=== PATIENT | female | born 1945 | race Caucasian/White ===

== ENCOUNTER 2020-08-13 22:42 | Emergency (ER) | payer MEDICARE, SELFPAY ==
[2020-08-13 22:43] VITALS: BP 137/67; PULSE 86; RESP 16; TEMP 37; O2SAT 96; BMI 31.3
[2020-08-13 23:00] VITALS: BP 131/68; PULSE 65; RESP 17; O2SAT 98
[2020-08-13 23:30] VITALS: BP 137/80; PULSE 71; RESP 17; O2SAT 98
[2020-08-13 23:46] LABS: Bilirubin,Urine Negative (Negative); Blood, Urine 3+ (Negative); Color,Urine YELLOW (Yellow); Glucose,Urine (UA) Negative (Negative); Ketones,Urine Negative (Negative); Leukocyte Esterase,Urine TRACE (Negative); Microscopic, Urine URINE MICROSCOPIC (MICROSCOPIC); Nitrate,Urine POSITIVE (Negative); Protein,Urine Negative (Negative); Specific Gravity, Urine 1.025 (1.005-1.030); Urobilinogen,Urine 0.2 EU/dl (0.2)
--- NOTE | 2020-08-13 23:46 | HMH.EDFEV ---
ED Disposition Clinical Impression: UTI (urinary tract infection) Qualifiers: Urinary tract infection type: site unspecified Hematuria presence: without hematuria Qualified Code(s): N39.0 - Urinary tract infection, site not specified Disposition: Home, Self-Care Condition on Discharge: Good Instructions: DI for Fever (Symptom) -- Adult Additional Instructions: fluids and keep appt in am Referrals: Fabian Solomon MD [Primary Care Provider] - - Critical Care Critical Care Time: No Attestation: On 08/13/20, the high probability of a clinically significant, sudden or life threatening deterioration of the following system(s) required my full and direct attention, intervention and personal management. The time I documented below is in addition to time spent performing reported procedures but includes the following listed in this critical care notation. Medical Decision Making - Medical Records Medical records reviewed: Yes: I reviewed the patient's medical records. - Ian Inquiry Pt receiving controlled substance: No Vital Signs: 08/13/20 22:43 08/13/20 23:00 08/13/20 23:30 Temperature 98.6 F Temperature Source Oral Pulse Rate [Right Radial] 86 65 71 Respiratory Rate 16 17 17 Blood Pressure [Right Arm] 137/67 131/68 137/80 Blood Pressure Mean [Right Arm] 90 89 99 Blood Pressure Source [Right Arm] Automatic Cuff Automatic Cuff Automatic Cuff Blood Pressure Position [Right Arm] Supine Supine Supine 02 Sat by Pulse Oximetry 96 98 98 Oxygen Delivery Method Room Air Room Air Room Air 08/14/20 00:00 Temperature Temperature Source Pulse Rate [Right Radial] 69 Respiratory Rate 17 Blood Pressure [Right Arm] 133/74 Blood Pressure Mean [Right Arm] 93 Blood Pressure Source [Right Arm] Automatic Cuff Blood Pressure Position [Right Arm] Supine 02 Sat by Pulse Oximetry 98 Oxygen Delivery Method Room Air - Lab Data Lab results reviewed: Yes: I reviewed the patient's lab results. Lab Results 08/13/20 23:10: Urine Color Yellow, Urine Appearance Slightly cloudy, Urine pH 6.0, Ur Specific Bradshaw 1.025, Urine Protein Negative, Urine Glucose (UA) Negative, Urine Ketones Negative, Urine Blood 3+, Urine Nitrate Positive, Urine Bilirubin Negative, Urine Urobilinogen 0.2, Ur Leukocyte Esterase Trace, Urine RBC 3-5, Urine WBC Occasional, Urine Bacteria 2+ Orders (Tests/Meds): ORDERS Category Date Time Status XR chest 2V Stat Exams 08/13/20 23:47 Taken Complete Blood Count Auto Diff Stat Lab 08/13/20 23:47 Received Comprehensive Metabolic Panel Stat Lab 08/13/20 23:47 Received Covid-19 Nasal PCR ([facility]) Routine Lab 08/13/20 23:47 Received Flu A&B Antigens, Rapid [Rapid Influenza A&B Antigens] Lab 08/13/20 23:58 Received Stat Strep Scrn Group A (Rapid) Stat Lab 08/13/20 23:58 Received Urine Culture Stat Micro 08/13/20 23:10 Received - Radiology Data #1 Image(s): Chest Image Reviewed: Yes I reviewed the patient's radiology image Preliminary Findings: Normal/NAD Fever HPI - General Chief Complaint: Fever Stated Complaint: Fever, tired Time Seen by Provider: 08/13/20 23:40 Mode of Arrival: Ambulatory Source of Information: Patient, Relative, Medical Record Limitations: No Limitations Description of Symptoms (Recalled from ER Triage Doc. by RN): Pt c/o subjective fever starting tonight with fatigue. Pt denies abd pain, N/V/D. 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
--- NOTE | 2020-08-13 23:47 | XR_ITS ---
PROCEDURE: XR CHEST 2V CLINICAL HISTORY: URI Cough COMPARISON: No exams were available for comparison FINDINGS: The cardiomediastinal silhouette and pulmonary vascularity are within normal limits. The lungs are clear without infiltrates, suspicious nodules, or pleural effusions. No acute bony abnormalities. IMPRESSION: No acute findings. Dictated by: Ish Yoo MD 08/14/2020 06:08 Ish Yoo MD in OV 08/14/2020 06:08
[2020-08-13 23:51] LABS: Appearance,Urine Slightly Cloudy (Clear)
[2020-08-13 23:59] LABS: Bacteria,Urine 2+ /lpf; WBC,Urine Occasional #/hpf (0-3)
[2020-08-14] VITALS: BP 133/74; PULSE 69; RESP 17; O2SAT 98
[2020-08-14 00:21] LABS: Basophils # 0.1 K/mm3 (0-0.2); Basophils % 1.6 % (0.1-2.0); Eosinophils # 0.2 K/mm3 (0.0-0.4); Hematocrit 44.4 % (37.0-47.0); Hemoglobin 14.6 g/dL (12.2-16.2); Lymphocytes # 2.4 K/mm3 (0.7-4.5); Lymphocytes % 28.4 % (10-50); Mean Corpuscular HGB Conc 32.8 g/dL (31.8-35.4); Mean Corpuscular Volume 88.3 fl (81-99); Mean Platelet Volume 8.2 fl (7.4-10.4); Monocytes # 0.6 K/mm3 (0.1-1.0); Monocytes % 7.2 % (1.7-9.3); Neutrophils # 5.1 K/mm3 (1.8-7.8); Neutrophils % 60.8 % (37.0-80.0); Platelet Count 270 K/mm3 (142-424); Red Blood Count 5.03 M/mm3 (4.20-5.40); Red Cell Distribution Width 13.5 % (11.5-17.5); White Blood Count 8.4 K/mm3 (4.8-10.8)
[2020-08-14 00:24] LABS: Strep Scrn Group A (Rapid) Negative (Negative)
[2020-08-14 00:34] LABS: Chloride 102 mmol/L (98-107); Sodium 136 mmol/L (136-145)
[2020-08-14 00:35] LABS: Potassium 4.2 mmoL/L (3.5-5.1)
[2020-08-14 00:36] VITALS: BP 138/83; PULSE 79; RESP 16; TEMP 36.7; O2SAT 97
[2020-08-14 00:37] LABS: Alanine Aminotransferase 13 U/L (12-78); Alkaline Phosphatase 97 U/L (38-126); Anion Gap 13.2 mEq/L (5-15); Aspartate Amino Transferase 27 U/L (14-36); Bilirubin,Total 0.6 mg/dl (0.2-1.3); Blood Urea Nitrogen 22 mg/dl (7-17); Carbon Dioxide 25 mmol/L (22.0-30.0); Creatinine Clearance Estimated 67 mL/min (50-200); Estimated Glomerular Filt Rate 54 ml/min (>60); GFR (African American) 65 ML/MIN (>60)
[2020-08-14 00:38] LABS: Albumin Level 3.8 g/dl (3.5-5.0); Albumin/Globulin Ratio 1.1 (1.1-1.8); Calcium 9.3 mg/dl (8.4-10.2); Globulin 3.5 g/dL (1.3-3.2); Glucose 111 mg/dl (74-100); Total Protein,Serum 7.3 g/dl (6.3-8.2)
== END 2020-08-14 00:37 | disposition home or self-care (01) ==
PROVIDERS: Emergency Provider Emergency Medicine; PCP Family Medicine
DX: Z20.822 Contact with and (suspected) exposure to COVID-19 (principal); N39.0 Urinary tract infection, site not specified
CPT/HCPCS: 71046; 80053; 81001; 85025; 87086; 87275; 87276; 87430; 99284; U0003

== ENCOUNTER → 2020-08-14 16:18 | Outpatient (CLI) | payer MEDICARE, SELFPAY ==
[2020-08-14 16:35] LABS: Chol/HDL Ratio 3.6 (1-3.5); Cholesterol 167 mg/dl (140-200); HDL Cholesterol 46 mg/dl (40-60); Triglycerides 125 mg/dl (30-150); VLDL Cholesterol 25 mg/dL (0-40)
[2020-08-14 16:45] LABS: Direct LDL Cholesterol 86.81 mg/dL (100-129)
[2020-08-14 16:56] LABS: Hemoglobin A1C 5.5 % (4.0-6.0)
[2020-08-14 17:06] LABS: Thyroid Stimulating Hormone 7.05 uIU/mL (0.465-4.68)
== END ==
PROVIDERS: Visit Provider Family Medicine
DX: R53.83 Other fatigue (principal); R73.09 Other abnormal glucose; I10 Essential (primary) hypertension
CPT/HCPCS: 80061; 83036; 84443

== ENCOUNTER 2021-07-18 10:47 | Emergency (ER) | payer MEDICARE, SELFPAY ==
[2021-07-18 11:00] VITALS: BP 134/84; PULSE 97; RESP 18; TEMP 36.7; O2SAT 98; BMI 27.5
--- NOTE | 2021-07-18 11:36 | HMH.EDUTC ---
[facility] [place] Clinical Impression: Strep sore throat, COVID-19 virus test result unknown Disposition: Home, Self-Care Condition on Discharge: Good Instructions: DI for Strep Throat, DI for COVID-19 (Suspected or Confirmed ) Additional Instructions: Start antibiotics today be sure to take it as ordered with the full length of time although you should start feeling better in 24-48 hours. Change toothbrush and toothpaste 24-48 hours after starting antibiotics Tylenol or Motrin as needed for fever or pain Encourage fluids, water, Gatorade, Powerade, try cold fluids, popsicles, ice cream will make it feel better You are contagious for 24 hours. Avoid kissing anyone, no eating or drinking after anyone. You are contagious. Follow-up the ER for new or worsening symptoms or no noticeable improvement over the next 24-48 hours. Follow-up with PCP this week. Prescriptions: Fluticasone Propionate [Flonase 50mcg nasal spray 16gm] 1 spr NS DAILY 14 Days #9.9 ml Transmission Status: Received by [facility] PRIYANKA 420 Azithromycin [Zithromax 250mg tab] 250 mg PO DIRECTED #6 tab Transmission Status: Received by [email or web address] [id number] Referrals: Fabian Solomon MD [Primary Care Provider] - Time of Disposition: 12:00 Medical Decision Making - Ian Inquiry Pt receiving controlled substance: No Vital Signs: 07/18/21 11:00 07/18/21 11:56 Temperature 98.1 F 98.1 F Temperature Source Oral Pulse Rate 97 H Pulse Rate [Right Brachial] 97 H Respiratory Rate 18 18 Blood Pressure 134/84 Blood Pressure [Right Arm] 134/84 Blood Pressure Mean [Right Arm] 100 Blood Pressure Source [Right Arm] Automatic Cuff Blood Pressure Position [Right Arm] Sitting 02 Sat by Pulse Oximetry 98 Oxygen Delivery Method Room Air [facility] [place] HPI - General Chief complaint: Urgent [facility] Stated complaint: covid symptoms Time Seen by Provider: 07/18/21 11:37 Mode of Arrival: Ambulatory Source of Information: Patient Limitations: No Limitations Description of Symptoms (Recalled from Triage Doc. by RN): PATIENT C/O COUGH, CONGESTION, DECREASED APPETITE, AND WEAKNESS X 1 WEEK HEENT Symptoms (Recalled from RN notes): Yes Resp Symptoms (Recalled from RN notes): Yes Skin Symptoms (Recalled from RN notes): No MS Symptoms (Recalled from RN notes): No Functional Status (Recalled from RN notes): WNL - History of Present Illness Provider Complaint: 76 yr old female presents for sore throat,body aches,weakness, cough,sinus presure and decrease max for 1 week. pt states she feels like she does when she has strep. - Related Data Previous Rx's Medication Instructions Recorded levothyroxine 112 mcg tablet 112 mcg PO DAILY #90 tab 09/01/20 Azithromycin [Zithromax 250mg 250 mg PO DIRECTED #6 tab 07/18/21 tab] Fluticasone Propionate [Flonase 1 spr NS DAILY 14 Days #9.9 ml 07/18/21 50mcg nasal spray 16gm] Allergies Allergy/AdvReac Type Severity Reaction Status Date / Time midazolam [From Versed] AdvReac Verified 12/01/20 13:16 - Worker's Comp Is this a Worker's Comp case?: No [facility] History - Hepatitis A Screen Drug use history?: No High risk sexual behaviors?: No History of sexually transmitted infection?: No Currently employed?: No Childcare worker?: No Do you have indoor plumbing?: Yes Do you have electricity?: Yes Attestation statement:: This patient has been screened for Hepatitis A risk factors. I have reviewed the patient's past medical history: Yes Medical History: Reports:: Cancer - Social History Smoking Status: Never smoker Alcohol Intake: never Substance Use Type: denies use Occupational Status: retired ROS Obtained: Yes Systems reviewed as appropriate & no additional complaints - Constitutional Constitutional: Reports system reviewed and no additional complaints, except as docu, Denies fever(s) - Eyes Eyes: Reports system reviewed and no additional complaints, except as docu, Denies blurry
[2021-07-18 11:56] VITALS: BP 134/84; PULSE 97; RESP 18; TEMP 36.7; O2SAT 98
[2021-07-18 12:05] LABS: UTC Strep Screen (Rapid) Negative (Negative)
[2021-07-18 15:10] LABS: Adenovirus,PCR Not Detected (NotDetected); Bordetella Pertussis Not Detected (NotDetected); Chlamydophila Pneumoniae, PCR Not Detected (NotDetected); Coronavirus 229E Not Detected (NotDetected); Coronavirus NL63 Not Detected (NotDetected); Coronavirus OC43 Not Detected (NotDetected); Coronovirus HKU1,PCR Not Detected (NotDetected); Human Metapneumovirus Not Detected (NotDetected); Influenza A, PCR Not Detected (NotDetected); Influenza AH1, 2009 Not Detected (NotDetected); Influenza AH1, PCR Not Detected (NotDetected); Influenza AH3,PCR Not Detected (NotDetected); Influenza B, PCR Not Detected (NotDetected); Mycoplasma Pneumoniae, PCR Not Detected (NotDetected); Parainfluenza 1, PCR Not Detected (NotDetected); Parainfluenza 2, PCR Not Detected (NotDetected); Parainfluenza 3, PCR Not Detected (NotDetected); Parainfluenza 4, PCR Not Detected (NotDetected); Respiratory Syncytial Virus Not Detected (NotDetected); Rhinovirus/Enterovirus Not Detected (NotDetected)
[2021-07-18 17:05] LABS: Coronavirus 19, PCR Detected (NotDetected)
== END 2021-07-18 12:00 | disposition home or self-care (01) ==
PROVIDERS: Emergency Provider Nurse Practitioner Family; PCP Family Medicine
DX: U07.1 COVID-19 (principal)
CPT/HCPCS: G0463; 87581; 87632; 87798; 87880; 99203; C9803; U0003; U0005

== ENCOUNTER 2022-06-12 12:39 | Emergency (ER) | payer MEDICARE, SELFPAY ==
--- NOTE | 2022-06-12 12:50 | EXP.UTC ---
Discharge Plan Disposition Patient Disposition: Home, Self-Care Condition: Good Prescriptions Prescriptions: New amoxicillin [amoxicillin] 500 mg tablet 500 mg PO TID 10 Days Qty: 30 0RF benzonatate [benzonatate] 100 mg capsule 100 mg PO TIDP PRN (Reason: Cough) Qty: 30 0RF methylprednisolone 4 mg Tablets,Dose Pack 4 mg PO DIRECTED Qty: 21 0RF No Action levothyroxine [Synthroid] 112 mcg tablet 112 mcg PO DAILY Qty: 90 3RF azithromycin 250 MG tablet 250 mg PO DIRECTED Qty: 6 0RF Rx Instructions: Take two (2) tablets on day #1, then one (1) tablet day #2 thru #5 fluticasone propionate 120 SPR/BOT bottle 1 spr NS DAILY 14 Days Qty: 9.9 0RF Referrals Follow up/Referrals: Fabian Solomon MD [Primary Care Provider] - See instructions Activity Restrictions/Add. Instructions Additional Instructions/Restrictions: Drink plenty of fluids. Take tylenol or ibuprofen for pain or fever. Take the medications as directed. Follow up with your regular doctor. GO TO THE ER FOR ANY WORSENING SYMPTOMS Don't start the oral steroids until tomorrow, since you had the shot here today. Clinical Impressions Clinical Impression: Pharyngitis Discharge ED Provider: Honorio Elizalde [facility] General Stated complaint: Sore throat Time Seen by Provider: 06/12/22 12:50 History of Present Illness Provider Complaint: She states that she has had a sore throat and she has felt bad for the past 2 days. Related Data Previous Rx's Medication Instructions Recorded levothyroxine 112 mcg tablet 112 mcg PO DAILY #90 tabs 09/01/20 (Synthroid) azithromycin 250 mg tablet 250 mg PO DIRECTED #6 tabs 07/18/21 fluticasone propionate 50 1 spr NS DAILY 14 days #9.9 mL 07/18/21 mcg/actuation nasal spray,suspension amoxicillin 500 mg tablet 500 mg PO TID 10 days #30 tabs 06/12/22 benzonatate 100 mg capsule 100 mg PO TIDP PRN Cough #30 caps 06/12/22 methylprednisolone 4 mg tablets in 4 mg PO DIRECTED #21 tabs 06/12/22 a dose pack Allergies Allergy/AdvReac Type Severity Reaction Status Date / Time midazolam [From Versed] AdvReac Verified 06/12/22 13:48 PFSH PFS Social History Smoking Status: Never smoker alcohol intake: never substance use type: denies use current occupational status: retired Travel in the last 8 weeks: None ROS Obtained: Yes All systems reviewed & no additional complaints except as documented Constitutional Constitutional: Reports chills and Reports fever(s) Eyes Eyes: Denies eye discharge ENT Ears, Nose, Mouth, and Throat: Reports as per HPI Cardiovascular Cardiovascular: Denies chest pain Respiratory Respiratory: Denies chest congestion and Reports cough Gastrointestinal Gastrointestingal: Reports nausea; Denies abdominal pain, constipation, cramping, diarrhea or vomiting Musculoskeletal Musculoskeletal: Denies arthralgias Integumentary/Breasts Skin/Breast: Denies rash Neurologic Neurologic: Denies paresthesias Physical Exam General General appearance: alert and in no apparent distress Head Head exam: atraumatic, normocephalic and normal inspection Eye Eye exam: Present normal appearance, PERRL and EOMI ENT ENT exam: Present mucous membranes moist and normal external ear exam Expanded ENT Exam TM/Canal exam: Bilateral TM: erythema and bulging Nose exam: Absent sinus tenderness Mouth exam: Present normal external inspection; Absent drooling Teeth exam: Present normal inspection Throat exam: Present tonsillar erythema, tonsillomegaly and tonsillar exudate Neck Neck exam: Present normal inspection, full ROM and trachea midline; Absent tenderness, meningismus or lymphadenopathy Chest Chest inspection: Present normal inspection and symmetric chest wall rise; Absent tenderness Respiratory Respiratory exam: Present normal lung sounds bilaterally; Absent respiratory distress, wheezes or st
[2022-06-12 13:47] VITALS: BP 185/78; PULSE 87; RESP 17; TEMP 36.8; O2SAT 96; BMI 29.7
[2022-06-12 13:56] LABS: UTC Strep Screen (Rapid) Negative (Negative)
[2022-06-12 14:28] VITALS: BP 185/78; PULSE 87; RESP 17; TEMP 36.8
--- NOTE | 2022-06-13 23:36 | EXP.UTC ---
Discharge Plan Disposition Patient Disposition: Home, Self-Care Condition: Good Prescriptions Prescriptions: New amoxicillin [amoxicillin] 500 mg tablet 500 mg PO TID 10 Days Qty: 30 0RF benzonatate [benzonatate] 100 mg capsule 100 mg PO TIDP PRN (Reason: Cough) Qty: 30 0RF methylprednisolone 4 mg Tablets,Dose Pack 4 mg PO DIRECTED Qty: 21 0RF No Action levothyroxine [Synthroid] 112 mcg tablet 112 mcg PO DAILY Qty: 90 3RF azithromycin 250 MG tablet 250 mg PO DIRECTED Qty: 6 0RF Rx Instructions: Take two (2) tablets on day #1, then one (1) tablet day #2 thru #5 fluticasone propionate 120 SPR/BOT bottle 1 spr NS DAILY 14 Days Qty: 9.9 0RF Referrals Follow up/Referrals: Fabian Solomon MD [Primary Care Provider] - See instructions Activity Restrictions/Add. Instructions Additional Instructions/Restrictions: Drink plenty of fluids. Take tylenol or ibuprofen for pain or fever. Take the medications as directed. Follow up with your regular doctor. GO TO THE ER FOR ANY WORSENING SYMPTOMS Don't start the oral steroids until tomorrow, since you had the shot here today. Clinical Impressions Clinical Impression: Pharyngitis Instructions Patient Instructions: DI for Pharyngitis/Tonsillopharyngitis -- Adult Discharge ED Provider: Honorio Elizalde [facility] General Stated complaint: Sore throat Mode of Arrival: Ambulatory Source of Information: Patient Limitations: No Limitations Time Seen by Provider: 06/12/22 12:50 Description of Symptoms (Recalled from Triage Doc. by RN): HEENT Symptoms (Recalled from RN notes): Yes Resp Symptoms (Recalled from RN notes): Yes Skin Symptoms (Recalled from RN notes): No MS Symptoms (Recalled from RN notes): No Functional Status (Recalled from RN notes): n/a History of Present Illness Provider Complaint: She states that she has had a sore throat, cough, fatigue. symptoms began this morning. Related Data Previous Rx's Medication Instructions Recorded levothyroxine 112 mcg tablet 112 mcg PO DAILY #90 tabs 09/01/20 (Synthroid) azithromycin 250 mg tablet 250 mg PO DIRECTED #6 tabs 07/18/21 fluticasone propionate 50 1 spr NS DAILY 14 days #9.9 mL 07/18/21 mcg/actuation nasal spray,suspension amoxicillin 500 mg tablet 500 mg PO TID 10 days #30 tabs 06/12/22 benzonatate 100 mg capsule 100 mg PO TIDP PRN Cough #30 caps 06/12/22 methylprednisolone 4 mg tablets in 4 mg PO DIRECTED #21 tabs 06/12/22 a dose pack Allergies Allergy/AdvReac Type Severity Reaction Status Date / Time midazolam [From Versed] AdvReac Verified 06/12/22 13:48 Worker's Comp Is this a Worker's Comp case?: No PFSH PFSH Social History Smoking Status: Never smoker alcohol intake: never substance use type: denies use current occupational status: retired Travel in the last 8 weeks: None ROS Obtained: Yes All systems reviewed & no additional complaints except as documented Constitutional Constitutional: Reports chills and Reports fever(s) Eyes Eyes: Denies eye discharge ENT Ears, Nose, Mouth, and Throat: Reports as per HPI Cardiovascular Cardiovascular: Denies chest pain Respiratory Respiratory: Denies chest congestion and Reports cough Gastrointestinal Gastrointestingal: Reports nausea; Denies abdominal pain, constipation, cramping, diarrhea or vomiting Musculoskeletal Musculoskeletal: Denies arthralgias Integumentary/Breasts Skin/Breast: Denies rash Neurologic Neurologic: Denies paresthesias Physical Exam General General appearance: alert and in no apparent distress Head Head exam: atraumatic, normocephalic and normal inspection Eye Eye exam: Present normal appearance, PERRL and EOMI ENT ENT exam: Present mucous membranes moist and normal external ear exam Expanded ENT Exam TM/Canal exam: Bilateral TM: erythema and bulging Nose exam: Absent sinus tenderness Inna
== END 2022-06-12 14:33 | disposition home or self-care (01) ==
PROVIDERS: Emergency Provider Nurse Practitioner Family; PCP Family Medicine
DX: J02.9 Acute pharyngitis, unspecified (principal)
CPT/HCPCS: 87880; 96372; 99212; C9803; G0463; J0696; U0003; U0005

== ENCOUNTER 2022-12-21 09:34 | Emergency (ER) | payer MEDICARE, SELFPAY ==
[2022-12-21 09:49] VITALS: BP 191/98; PULSE 73; RESP 16; TEMP 36.8; O2SAT 99; BMI 29.7
--- NOTE | 2022-12-21 10:05 | EXP.UTC ---
Discharge Plan Disposition Patient Disposition: Home, Self-Care Condition: Good Prescriptions Prescriptions: New losartan-hydrochlorothiazide [Hyzaar] 50-12.5 mg tablet 1 tab PO DAILY Qty: 30 0RF No Action levothyroxine [Synthroid] 112 mcg tablet 112 mcg PO DAILY Qty: 90 3RF azithromycin 250 MG tablet 250 mg PO DIRECTED Qty: 6 0RF Rx Instructions: Take two (2) tablets on day #1, then one (1) tablet day #2 thru #5 fluticasone propionate 120 SPR/BOT bottle 1 spr NS DAILY 14 Days Qty: 9.9 0RF amoxicillin [amoxicillin] 500 mg tablet 500 mg PO TID 10 Days Qty: 30 0RF benzonatate [benzonatate] 100 mg capsule 100 mg PO TIDP PRN (Reason: Cough) Qty: 30 0RF methylprednisolone 4 mg Tablets,Dose Pack 4 mg PO DIRECTED Qty: 21 0RF Referrals Follow up/Referrals: Fabian Solomon MD [Primary Care Provider] - See instructions Activity Restrictions/Add. Instructions Additional Instructions/Restrictions: Eat a low sodium diet. Take the medications as directed. After starting the medication, go slowly from sitting to standing. Any hypertension medication can cause dizziness. Follow up with your regular doctor with in 1 to 2 weeks for a recheck and to see if the medication needs adjusting. GO TO THE ER FOR ANY WORSENING SYMPTOMS Clinical Impressions Clinical Impression: Hypertension Instructions Patient Instructions: Essential Hypertension, Low-Sodium Diet, Losartan Discharge ED Provider: Honorio Elizalde [facility] General Stated complaint: High BP Mode of Arrival: Ambulatory Source of Information: Patient Limitations: No Limitations Time Seen by Provider: 12/21/22 10:05 HEENT Symptoms (Recalled from RN notes): No Resp Symptoms (Recalled from RN notes): No Skin Symptoms (Recalled from RN notes): No MS Symptoms (Recalled from RN notes): No Functional Status (Recalled from RN notes): wnl History of Present Illness Provider Complaint: pt c/o elevated bp. pt states she took it last night at [facility] and it was elevated. pt is requesting to be started on a bp med. She denies any headache, dizziness, shortness of breath, chest pain or other symptoms. Related Data Previous Rx's Medication Instructions Recorded levothyroxine 112 mcg tablet 112 mcg PO DAILY #90 tabs 09/01/20 (Synthroid) azithromycin 250 mg tablet 250 mg PO DIRECTED #6 tabs 07/18/21 fluticasone propionate 50 1 spr NS DAILY 14 days #9.9 mL 07/18/21 mcg/actuation nasal spray,suspension amoxicillin 500 mg tablet 500 mg PO TID 10 days #30 tabs 06/12/22 benzonatate 100 mg capsule 100 mg PO TIDP PRN Cough #30 caps 06/12/22 methylprednisolone 4 mg tablets in 4 mg PO DIRECTED #21 tabs 06/12/22 a dose pack losartan 50 mg-hydrochlorothiazide 1 tab PO DAILY #30 tabs 12/21/22 12.5 mg tablet (Hyzaar) Allergies Allergy/AdvReac Type Severity Reaction Status Date / Time midazolam [From Versed] AdvReac Verified 12/21/22 09:58 Worker's Comp Is this a Worker's Comp case?: No PFSH PFS Disclaimer: The information contained in this section may have been updated after the patient was seen, as this information can be updated by other users. Social History Smoking Status: Never smoker alcohol intake: never substance use type: denies use current occupational status: retired Travel in the last 8 weeks: None ROS Obtained: Yes All systems reviewed & no additional complaints except as documented Constitutional Constitutional: Denies chills and Denies fever(s) Eyes Eyes: Denies eye discharge ENT Ears, Nose, Mouth, and Throat: Denies dizziness, Denies otalgia and Denies sore throat Cardiovascular Cardiovascular: Denies chest pain Respiratory Respiratory: Denies shortness of breath, Denies chest congestion, Denies cough, Denies stridor and Denies wheezing Gastrointestinal Gastrointestingal: Denies nausea or vomiting Musculoskeletal Musculo
--- NOTE | 2022-12-21 10:16 | ECG_ITS ---
APPROVED REPORT Exam: Resting ECG HR:71 bpm ECG Measurements Heart Rate 71 AXES SC 201 P 60 QRSd 78 QRS 39 QT 397 T 50 QTc 420 Conclusion SINUS RHYTHM WITH OCCASIONAL VENTRICULAR PREMATURE COMPLEXES NONSPECIFIC T-WAVE ABNORMALITY BORDERLINE ECG UNCONFIRMED REPORT Electronically signed by : Skinny Mccallum MD 12/21/2022 20:09:06
[2022-12-21 10:47] VITALS: BP 191/98; PULSE 73; RESP 16; TEMP 36.8
== END 2022-12-21 10:51 | disposition home or self-care (01) ==
PROVIDERS: Emergency Provider Nurse Practitioner Family; PCP Family Medicine
DX: I10 Essential (primary) hypertension (principal); I49.3 Ventricular premature depolarization
CPT/HCPCS: 93005; 93041; 99212; 99214; G0463

== ENCOUNTER → 2023-01-10 12:28 | Outpatient (CLI) | payer MEDICARE, SELFPAY ==
[2023-01-10 19:14] LABS: Alanine Aminotransferase 22 U/L (12-78); Albumin Level 4.1 g/dl (3.5-5.0); Albumin/Globulin Ratio 1.3 (1.1-1.8); Alkaline Phosphatase 86 U/L (38-126); Anion Gap 17.2 mEq/L (5-15); Aspartate Amino Transferase 33 U/L (14-36); Bilirubin,Total 0.5 mg/dl (0.2-1.3); Blood Urea Nitrogen 21 mg/dl (7-17); Calcium 9.4 mg/dl (8.4-10.2); Carbon Dioxide 27 mmol/L (22.0-30.0); Chloride 102 mmol/L (98-107); Chol/HDL Ratio 3.8 (1-3.5); Cholesterol 192 mg/dl (140-200); Estimated Glomerular Filt Rate 60 ml/min (>60); GFR (African American) 73 ML/MIN (>60); Globulin 3.1 g/dL (1.3-3.2); Glucose 123 mg/dl (74-100); HDL Cholesterol 51 mg/dl (40-60); Potassium 4.2 mmoL/L (3.5-5.1); Sodium 142 mmol/L (136-145); Total Protein,Serum 7.2 g/dl (6.3-8.2); Triglycerides 155 mg/dl (30-150); VLDL Cholesterol 31 mg/dL (0-40)
[2023-01-10 19:16] LABS: Basophils # 0.1 K/mm3 (0-0.2); Basophils % 0.8 % (0.1-2.0); Eosinophils # 0.1 K/mm3 (0.0-0.4); Eosinophils % 1.8 % (0.1-12.0); Hematocrit 43.8 % (37.0-47.0); Hemoglobin 14.2 g/dL (12.2-16.2); Lymphocytes # 1.6 K/mm3 (0.7-4.5); Lymphocytes % 25.5 % (10-50); Mean Corpuscular HGB Conc 32.3 g/dL (31.8-35.4); Mean Corpuscular Hemoglobin 28.2 pg (27.0-31.2); Mean Corpuscular Volume 87.1 fl (81-99); Mean Platelet Volume 8.4 fl (7.4-10.4); Monocytes # 0.4 K/mm3 (0.1-1.0); Monocytes % 7.1 % (1.7-9.3); Neutrophils % 64.8 % (37.0-80.0); Platelet Count 285 K/mm3 (142-424); Red Blood Count 5.03 M/mm3 (4.20-5.40); Red Cell Distribution Width 15.3 % (11.5-17.5); White Blood Count 6.1 K/mm3 (4.8-10.8)
[2023-01-10 19:25] LABS: Direct LDL Cholesterol 95.79 mg/dL (100-129)
[2023-01-10 19:31] LABS: 25-OH Vitamin D, Total 28.1 ng/mL (30-100)
[2023-01-10 19:45] LABS: Thyroid Stimulating Hormone 4.28 uIU/mL (0.465-4.68)
[2023-01-10 19:52] LABS: Hemoglobin A1C 5.7 % (4.0-6.0)
== END ==
PROVIDERS: PCP Family Medicine; Visit Provider Family Medicine
DX: E11.9 Type 2 diabetes mellitus without complications (principal); I10 Essential (primary) hypertension; E55.9 Vitamin D deficiency, unspecified; N39.0 Urinary tract infection, site not specified
CPT/HCPCS: 80053; 80061; 82306; 83036; 83735; 84443; 85025